=== PATIENT | male | born 1995 | race Caucasian/White ===

== ENCOUNTER 2018-04-01 23:17 | Inpatient (IN) | payer MEDICAID, OTHER ==
[~2018-04-01] VITALS: Ht 175.3 cm; Wt 79.3 kg
--- NOTE | 2018-04-01 23:25 | NUR ---
LATE ENTRY/SUMMARY NOTE: BIB CARE [facility] FROM [place] FOR C/O SA BY CUTTING LEFT WRIST AND PER NOTES FROM [place] THE ARTERY WAS INVOLED; PER REPORT KEE AND PRESSURE DRESSING PLACED. DRESSING REMAINS IN PLACE AND IS CDI. PT. DENIES DRUG USE BUT DOES REPORT DRINKING VODKA AND TAKING 4 X 400MG SEROQUEL TONIGHT ALSO IN AN ATTEMPT TO HARM SELF PER EMS. PT. RECEIVED TOTAL OF 2L OF NS AND 2MG OF VERSED EN ROUTE. PT. COMBATIVE EN ROUTE AND ON ARRIAVL. PT. UNABLE TO ANSWER QUESTIONS BY THIS RN AT THIS TIME. PT. PLACED IN RESTRAINTS FOR COMBATIVE BEHAVIOR; ALL MONITORS APPLIED. ALL SAFETY MEASURES OBSERVED. EKG WAS COMPLETED AND PRESENTED TO ABDIRIZAK.
--- NOTE | 2018-04-02 00:02 | NUR ---
PT'S HR INCREASED TO [address] RODRIGUEZ AND PRIMARY RN CYNTHIA MADE AWARE. REPEAT EKG IN PROGRESS.
--- NOTE | 2018-04-02 00:02 | NUR ---
PT. HR INCREASED TO 170'S. TECH AT NOW TO REPEAT EKG; HR CURRENTLY 146. AT THE TIME OF INCREASED HR PT. WAS SHOUTING "PLEASE, GET ME OUT" AND OTHER INCOMPREHENSIBLE SOUNDS AT TIME OF HR INCREASE. PT. EASILY FELL BACK ASLEEP. PT. AROUSABLE TO VOICE NOW AND IS ABLE TO ANSWER SOME QUESTIONS. PT. WITH SONOROUS RESPIRATIONS. ALL MONITORS REMAIN IN PLACE. DRESSING TO LEFT WRIST WAS REMOVED BY ERMD JENNIFER 5 KEE NOTED; BLEEDING CONTROLLED.
--- NOTE | 2018-04-02 00:23 | NUR ---
LAB AT BS.
[2018-04-02 00:38] LABS: BASOPHILS # (AUTO) 0.03 x10^3/uL (0-0.1); BASOPHILS % (AUTO) 0 % (0-1); EOSINOPHILS # (AUTO) 0.04 x10^3/uL (0-0.4); EOSINOPHILS % (AUTO) 0 % (1-7); LYMPHOCYTES # (AUTO) 2.08 x10^3/uL (1-3.4); LYMPHOCYTES % (AUTO) 19 % (22-44); MD NO; MEAN CORPUSCULAR HEMOGLOBIN 30.5 pg (27.5-34.5); MEAN CORPUSCULAR HGB CONC 34.5 g/dL (33.2-36.2); MEAN CORPUSCULAR VOLUME 88.4 fL (81-97); MEAN PLATELET VOLUME 6.9 fL (7.4-10.4); MONOCYTES # (AUTO) 1.01 x10^3/uL (0.2-0.8); MONOCYTES % (AUTO) 9 % (2-9); NEUTROPHILS # (AUTO) 8.02 x10^3/uL (1.8-6.8); NEUTROPHILS % (AUTO) 72 % (42-75); PLATELET COUNT 302 x10^3/uL (130-400); RED BLOOD COUNT 4.15 x10^6/uL (4.38-5.82); RED CELL DISTRIBUTION WIDTH 13.8 % (9.4-14.8)
[2018-04-02 00:44] LABS: ALANINE AMINOTRANSFERASE 29 U/L (12-78); ALBUMIN 3.3 g/dL (3.4-5.0); ANION GAP 9 mmol/L (5-15); CALCIUM 7.5 mg/dL (8.5-10.1); CHLORIDE 112 mmol/L (98-107); CREATININE 0.76 mg/dL (0.7-1.3)
[2018-04-02 00:45] LABS: ACETAMINOPHEN < 2 mcg/mL (10-30); SALICYLATE LEVEL < 1.7 mg/dL (2.8-20.0)
[2018-04-02 00:46] LABS: ALKALINE PHOSPHATASE 89 U/L (45-117); BILIRUBIN,TOTAL 0.2 mg/dL (0.2-1.0); TOTAL PROTEIN 6.1 g/dL (6.4-8.2)
--- NOTE | 2018-04-02 01:07 | NUR ---
PT. RESTING ON GURNEY WITH EYES CLOSED; SONOROUS RESPIRATIONS. HR IN THE 120'S AT THIS TIME, PT. DOES PERIODICALLY WAKE UP AND START SHOUTING AND FLAILING AROUND AND HR INCREASE'S UP TO 150'S UNTIL PT. BECOMES LESS RESTLESS AND DROWSY. SITTER REMAINS IN DOORWAY FOR SAFETY.
--- NOTE | 2018-04-02 02:15 | NUR ---
SECURITY ASSISTED THIS RN AND 2ND RN TO REMOVE PT. CLOTHING AND RESTRAINTS AT 0155. PT. TAKEN OUT OF RESTRAINTS AND PT. WOKE UP; PT. AGREES TO BE CALM/COOPERATIVE WITH STAFF IF RESTRAINTS REMAIN OFF. PT. HAS BEEN COOPERATIVE THUS FAR. URINE SAMPLE PROVIDED AND SENT TO LAB. ALL BELONGINGS REMOVED AND PLACED IN LOCKER IN 1 BAG.
[2018-04-02 02:36] LABS: AMPHETAMINE SCREEN, URINE Negative (Negative); BARBITURATE SCREEN, URINE Negative (Negative); BENZODIAZEPINE SCREEN, URINE Positive (Negative); CANNABINOID SCREEN, URINE Negative (Negative); COCAINE SCREEN, URINE Negative (Negative); METHADONE SCREEN, URINE Negative (Negative); OPIATE SCREEN, URINE Negative (Negative)
--- NOTE | 2018-04-02 02:44 | NUR ---
PT. CONTINUES RESTING ON GURNEY IN SUPINE POSITION; SONOROUS EVEN RESPIRATIONS. ALL MONITORS REMAIN IN PLACE. SITTER IN DOORWAY.
--- NOTE | 2018-04-02 02:59 | NUR ---
REPORT TO CADEN SRIVASTAVA. FLOOR READY FOR PT. TRANSPORT.
[2018-04-02 03:30] VITALS: BP 116/74
[2018-04-02] MEDS ORDERED: PROMETHAZINE 25 MG/ML, 1ML IM PRN (04:00)
[2018-04-02] MEDS ORDERED: IBUPROFEN 600 MG TABLET PO PRN (04:00)
[2018-04-02] MEDS: LACTATED RINGERS 1,000 ML IV SCH ×2 (04:37→14:22)
[2018-04-02 08:31] VITALS: BP 123/72
[2018-04-02 14:13] VITALS: BP 129/69
[2018-04-02] MEDS: NICOTINE 14MG/24 HR PATCH.TD24 TD SCH (14:22)
[2018-04-02 20:00] VITALS: BP 122/73
[2018-04-03] MEDS: LACTATED RINGERS 1,000 ML IV SCH (00:47)
[2018-04-03 02:00] VITALS: BP 133/75
[2018-04-03 05:53] LABS: ANION GAP 7 mmol/L (5-15); CALCIUM 8.9 mg/dL (8.5-10.1); CHLORIDE 112 mmol/L (98-107)
[2018-04-03 05:55] LABS: CREATININE 0.63 mg/dL (0.7-1.3)
[2018-04-03 06:02] LABS: BASOPHILS # (AUTO) 0.04 x10^3/uL (0-0.1); BASOPHILS % (AUTO) 1 % (0-1); EOSINOPHILS % (AUTO) 3 % (1-7); LYMPHOCYTES # (AUTO) 2.72 x10^3/uL (1-3.4); LYMPHOCYTES % (AUTO) 43 % (22-44); MD NO; MEAN CORPUSCULAR HEMOGLOBIN 30.1 pg (27.5-34.5); MEAN CORPUSCULAR HGB CONC 33.9 g/dL (33.2-36.2); MEAN CORPUSCULAR VOLUME 88.7 fL (81-97); MEAN PLATELET VOLUME 7.2 fL (7.4-10.4); MONOCYTES # (AUTO) 0.61 x10^3/uL (0.2-0.8); MONOCYTES % (AUTO) 10 % (2-9); NEUTROPHILS # (AUTO) 2.81 x10^3/uL (1.8-6.8); NEUTROPHILS % (AUTO) 44 % (42-75); PLATELET COUNT 317 x10^3/uL (130-400); RED BLOOD COUNT 4.71 x10^6/uL (4.38-5.82); RED CELL DISTRIBUTION WIDTH 13.5 % (9.4-14.8)
[2018-04-03 07:02] VITALS: BP 109/74
[2018-04-03] MEDS ORDERED: ONDANSETRON ODT 4 MG PO PRN (09:00)
[2018-04-03] MEDS: NICOTINE 14MG/24 HR PATCH.TD24 TD SCH (13:00)
[2018-04-03 13:07] VITALS: BP 120/78
[2018-04-03 17:48] VITALS: BP 144/97
[2018-04-03] MEDS ORDERED: QUET400T4 PO (18:02)
[2018-04-03 19:16] VITALS: BP 122/83
[2018-04-03] MEDS: ACETAMINOPHEN 325 MG TABLET PO PRN (19:46)
[2018-04-04 08:11] VITALS: BP 125/95
[2018-04-04] MEDS: ACETAMINOPHEN 325 MG TABLET PO PRN (08:33)
[2018-04-04] MEDS ORDERED: NICOTINE 21 MG/24 HR PATCH.TD24 ONE (14:25)
[2018-04-04] MEDS: NICOTINE 21 MG/24 HR PATCH.TD24 TD SCH (14:31)
[2018-04-04 19:58] VITALS: BP 140/103
[2018-04-04] MEDS: QUETIAPINE 200 MG TABLET PO SCH (20:05)
[2018-04-05 08:17] VITALS: BP 109/75
[2018-04-05] MEDS: NICOTINE 21 MG/24 HR PATCH.TD24 TD SCH (08:26)
[2018-04-05] MEDS ORDERED: NICOTINE 21 MG/24 HR PATCH.TD24 TD SCH (09:00)
[2018-04-05] MEDS: ACETAMINOPHEN 325 MG TABLET PO PRN (19:18)
[2018-04-05 19:38] VITALS: BP 116/77
[2018-04-05] MEDS: QUETIAPINE 200 MG TABLET PO SCH (21:29)
[2018-04-06 07:29] VITALS: BP 132/79
[2018-04-06] MEDS: NICOTINE 21 MG/24 HR PATCH.TD24 TD SCH (10:22)
[2018-04-06 19:15] VITALS: BP 120/78
[2018-04-06] MEDS: QUETIAPINE 200 MG TABLET PO SCH (21:10)
[2018-04-07 08:02] VITALS: BP 97/64
[2018-04-07] MEDS: NICOTINE 21 MG/24 HR PATCH.TD24 TD SCH (10:35)
[2018-04-07 19:50] VITALS: BP 122/82
[2018-04-07] MEDS: QUETIAPINE 200 MG TABLET PO SCH (21:13)
[2018-04-08 07:54] VITALS: BP 107/66
[2018-04-08] MEDS: NICOTINE 21 MG/24 HR PATCH.TD24 TD SCH (09:33)
[2018-04-08] MEDS: ACETAMINOPHEN 325 MG TABLET PO PRN (19:21)
[2018-04-08 19:32] VITALS: BP 121/74
[2018-04-08] MEDS: QUETIAPINE 200 MG TABLET PO SCH (21:15)
[2018-04-09 07:52] VITALS: BP 117/76
[2018-04-09] MEDS: NICOTINE 21 MG/24 HR PATCH.TD24 TD SCH (09:00)
== END 2018-04-09 13:30 | disposition home or self-care (01) | DRG 917 ==
LOC: ED 23:50 → EDIP 04-02 01:53 → 4EST 04-02 03:26 → 2N 04-03 17:34
PROVIDERS: ADMIT Internal Medicine; ATTEND Internal Medicine
DX: T43.592A Poisoning by other antipsychotics and neuroleptics, intentional self-harm, initial encounter (principal); G92 Toxic encephalopathy; E86.0 Dehydration; F10.10 Alcohol abuse, uncomplicated; F17.210 Nicotine dependence, cigarettes, uncomplicated; F32.9 Major depressive disorder, single episode, unspecified; S61.512A Laceration without foreign body of left wrist, initial encounter; X83.8XXA Intentional self-harm by other specified means, initial encounter; Y92.89 Other specified places as the place of occurrence of the external cause; Y93.89 Activity, other specified
CPT/HCPCS: 36415; 80048; 80053; 80307; 80329; 85025; 93005; 99291; G0378; G0480; J7120